=== PATIENT | female | born 1955 | race Caucasian/White ===

== ENCOUNTER 2022-07-08 09:52 | Outpatient (CLI) | payer BC, MEDICARE ==
[2022-07-08 10:26] LABS: ALT (SGPT) 19 U/L (8-55); AST (SGOT) 16 U/L (5-34); Albumin 3.9 g/dL (3.4-4.8); Alkaline Phosphatase 105 U/L (40-110); Anion Gap 13 mmol/L (10-20); BUN (Urea Nitrogen) 20 mg/dL (9.8-20.1); Bilirubin, Total 0.3 mg/dL (0.2-1.2); Calc. Creatinine Clearance 0 mL/min (70-130); Calcium 10.1 mg/dL (7.8-10.44); Carbon Dioxide 28 mmol/L (23-31); Cardiac Risk 2.5 (Less than 4.5); Chloride 105 mmol/L (98-107); Cholesterol 160 mg/dl (< 200 Desired); Estimated GFR 64; Globulin 3.1 g/dL (2.4-3.5); Glucose 117 mg/dL (80-115); HDL Cholesterol 63 mg/dL (>60 Neg Risk); LDL Cholesterol, Calculated 71 mg/dL; Potassium 4.8 mmol/L (3.5-5.1); Sodium 141 mmol/L (136-145); Triglycerides 132 mg/dL (Less than 150)
== END 2022-07-08 09:53 | disposition home or self-care (01) ==
LOC: MADLABBHPM 09:52 → MADLAB 09:53
PROVIDERS: ATTEND Family Medicine
DX: I11.9 Hypertensive heart disease without heart failure (principal)
CPT/HCPCS: 80053; 80061